=== PATIENT | female | born 1995 | race African-American/Black ===

== ENCOUNTER 2019-02-28 17:57 | Emergency (ER) | payer OTHER ==
[~2019-02-28] VITALS: Ht 165.1 cm; Wt 65.8 kg
--- NOTE | 2019-02-28 18:40 | PHYS DOC ---
Adult General Chief Complaint Chief Complaint: VAGINAL BLEEDING HPI HPI Patient is a 23 year old who presents to the ER for vaginal bleeding. Bleeding started this morning. Her last menstrual period is December 23 and that she's had a positive home test. Also had positive at [facility] on January 18. Has not had OB care. States that this is her fifth and she has 3 live children, and one miscarriage. She is carried all 3 children to full- term. Rates her pain as 5 out of 10 and crampy. Has not tried any interventions at home. (ISABELLA MARTINEZ APRN) Review of Systems Review of Systems Constitutional: Denies fever or chills [] Eyes: Denies change in visual acuity, redness, or eye pain [] HENT: Denies nasal congestion or sore throat [] Respiratory: Denies cough or shortness of breath [] Cardiovascular: No additional information not addressed in HPI [] GI: Reports abdominal diffusely Denies nausea, vomiting, bloody stools or diarrhea [] : Denies dysuria or hematuria [] Musculoskeletal: Denies back pain or joint pain [] Integument: Denies rash or skin lesions [] Neurologic: Denies headache, focal weakness or sensory changes [] Endocrine: Denies polyuria or polydipsia [] Complete systems were reviewed and found to be within normal limits, except as documented in this note. (ISABELLA MARTINEZ APRN) Physical Exam Physical Exam Constitutional: Well developed, well nourished, no acute distress, non-toxic appearance. [] HENT: Normocephalic, atraumatic, bilateral external ears normal, oropharynx mo ist, no oral exudates, nose normal. [] Eyes: PERRLA, EOMI, conjunctiva normal, no discharge. [] Neck: Normal range of motion, no tenderness, supple, no stridor. [] Cardiovascular:Heart rate regular rhythm, no murmur [] Lungs & Thorax: Bilateral breath sounds clear to auscultation [] Abdomen: Bowel sounds normal, soft, tenderness, states it has been cramping, no masses, no pulsatile masses. [] Skin: Warm, dry, no erythema, no rash. [] Back: No tenderness, no CVA tenderness. [] Extremities: No tenderness, no cyanosis, no clubbing, ROM intact, no edema. [] Neurologic: Alert and oriented X 3, normal motor function, normal sensory function, no focal deficits noted. [] Psychologic: Affect normal, judgement normal, mood normal. [] Pelvic Exam: External exam is normal and without rash, No CMT, OS is closed, blood noted, uterus NTTP, No adnexal masses but some tenderness noted: Pelvic performed by Liz Bai, Medical Student. (ISABELLA MARTINEZ APRN) Physical Exam Constitutional: Well developed, well nourished, no acute distress, non-toxic appearance HENT: Normocephalic, atraumatic, oropharynx moist Cardiovascular: Heart rate normal, regular rhythm Lungs & Thorax: Bilateral breath sounds clear to auscultation, no wheezing Abdomen: Soft, no tenderness Pelvic exam: as above Neurologic: Alert and oriented X 3, no focal deficits noted Psychologic: Affect normal, judgement normal, mood normal (ISABELLA KAYE DO) Current Patient Data Vital Signs Vital Signs Date Time Temp Pulse Resp B/P (MAP) Pulse Ox O2 Delivery O2 Flow Rate FiO2 02/28/19 20:30 78 18 114/71 (85) 99 Room Air 02/28/19 18:34 98.4 98.4 (KAYEISABELLA BRANCH R DO) Lab Values Laboratory Tests Test 02/28/19 18:28 02/28/19 18:30 02/28/19 20:07 Urine Collection Type Unknown Urine Color Yellow Urine Clarity Clear Urine pH 5.0 Urine Specific Bedias 1.020 Urine Protein Negative mg/dL (NEG-TRACE) Urine Glucose (UA) Negative mg/dL (NEG) Urine Ketones (Stick) Negative mg/dL (NEG) Urine Blood Large (NEG) Urine Nitrite Negative (NEG) Urine Bilirubin Negative (NEG) Urine Urobilinogen Dipstick 0.2 mg/dL (0.2 mg/dL) Urine Leukocyte Esterase Negative (NEG) Urine RBC 3-5 /HPF (0-2) Urine WBC Rare /HPF (0-4) Urine Squamous Epithelial Cells Few /LPF Urine Amorphous Sediment Present /HPF Urine Bacteria 0 /HPF (0-FEW) Urine Mucus Slight /LPF POC Urine HCG, Qualitative Hcg negative (Negative) White Blood Count 5.5 x10^3/uL (4.0-11.0) Red Blood Count 4.73 x10^6/uL (3.50-5.40) Hemoglobin 12.6 g/dL (12.0-15.5) Hematocrit 37.2 % (36.0-47.0) Mean Corpuscular Volume 79 fL (79-100) Mean Corpuscular Hemoglobin 27 pg (25-35) Mean Corpuscular Hemoglobin Concent 34 g/dL (31-37) Red Cell Distribution Width 13.7 % (11.5-14.5) Platelet Count 239 x10^3/uL (140-400) Neutrophils (%) (Auto) 53 % (31-73) Lymphocytes (%) (Auto) 37 % (24-48) Monocytes (%) (Auto) 8 % (0-9) Eosinophils (%) (Auto) 2 % (0-3) Basophils (%) (Auto) 1 % (0-3) Neutrophils # (Auto) 2.9 x10^3uL (1.8-7.7) Lymphocytes # (Auto) 2.0 x10^3/uL (1.0-4.8) Monocytes # (Auto) 0.4 x10^3/uL (0.0-1.1) Eosinophils # (Auto) 0.1 x10^3/uL (0.0-0.7) Basophils # (Auto) 0.0 x10^3/uL (0.0-0.2) Maternal Serum HCG Beta Subunit < 1 mIU/mL (0-5) Sodium Level 140 mmol/L (136-145) Potassium Level 3.6 mmol/L (3.5-5.1) Chloride Level 104 mmol/L (98-107) Carbon Dioxide Level 26 mmol/L (21-32) Anion Gap 10 (6-14) Blood Urea Nitrogen 12 mg/dL (7-20) Creatinine 0.8 mg/dL (0.6-1.0) Estimated GFR (Cockcroft-Gault) 107.6 BUN/Creatinine Ratio 15 (6-20) Glucose Level 83 mg/dL (70-99) Calcium Level 9.1 mg/dL (8.5-10.1) Total Bilirubin 0.6 mg/dL (0.2-1.0) Aspartate Amino Transferase (AST) 17 U/L (15-37) Alanine Aminotransferase (ALT) 26 U/L (14-59) Alkaline Phosphatase 71 U/L (46-116) Total Protein 8.2 g/dL (6.4-8.2) Albumin 4.0 g/dL (3.4-5.0) Albumin/Globulin Ratio 1.0 (1.0-1.7) Laboratory Tests 02/28/19 20:07 Laboratory Tests 02/28/19 20:07 (ISABELLA KAYE DO) Lab Values Laboratory Tests Test 02/28/19 18:28 02/28/19 18:30 Urine Collection Type Unknown Urine Color Yellow Urine Clarity Clear Urine pH 5.0 Urine Specific Bedias 1.020 Urine Protein Negative mg/dL (NEG-TRACE) Urine Glucose (UA) Negative mg/dL (NEG) Urine Ketones (Stick) Negative mg/dL (NEG) Urine Blood Large (NEG) Urine Nitrite Negative (NEG) Urine Bilirubin Negative (NEG) Urine Urobilinogen Dipstick 0.2 mg/dL (0.2 mg/dL) Urine Leukocyte Esterase Negative (NEG) Urine RBC 3-5 /HPF (0-2) Urine WBC Rare /HPF (0-4) Urine Squamous Epithelial Cells Few /LPF Urine Amorphous Sediment Present /HPF Urine Bacteria 0 /HPF (0-FEW) Urine Mucus Slight /LPF POC Urine HCG, Qualitative Hcg negative (Negative) (ISABELLA MARTINEZ APRN) EKG EKG [] (ISABELLA MARTINEZ APRN) Radiology/Procedures Radiology/Procedures Ultrasound states that there is left ovarian cyst with no or c ontent.[] (ISABELLA MARTINEZ APRN) Radiology/Procedures PROCEDURE: OB TRANSVAG OB ultrasound transvaginal HISTORY: Vaginal bleeding Transvaginal sonographic examination of the was performed and multiple static images were obtained. The endometrium appears homogeneous and measures 6 mm in thickness. There is no gestational sac seen. The right ovary is seen with normal blood flow measures 2.7 x 2.3 x 2.0 cm. The left ovary is seen with normal blood flow measures 2.5 x 4.0 x 2.4 cm and contains a partially collapsed corpus luteal cyst that measures 2.7 x 1.1 x 1.7 cm. There is minimal free fluid. IMPRESSION: No seen. Blighted ovum, miscarriage or early is still possible. Recommend correlation with serial quantitative beta hCG. If the continues a short-term follow-up ultrasound should be performed at 6 weeks to confirm an intrauterine . Electronically signed by: Darion Wilder III, MD (02/28/2019 7:53 PM) [facility] [id number] (ISABELLA KAYE DO) Course & Med Decision Making Course & Med Decision Making Pertinent Labs and Imaging studies reviewed. (See chart for details) Will get ultrasound, labs, urine, and evaluate. Turned patient over to Dr. Kaye at 20:00. (ISABELLA MARTINEZ APRN) Course & Med Decision Making Sign out received from Isabella DURON for patient with vaginal bleeding with report of . US without signs of gestation. Awaiting laboratory data. Patient seen and evaluated by myself and medical student. Medical student performed pelvic exam under supervision. Labs reviewed with CG < 1. Patient reports had bleeding 1 month ago. Concern for complete miscarriage last month with return of menstrual cycle now. Patient stable for discharge with outpatient follow-up with PCP. Discussed findings and plan with patient and family, who acknowledge understanding and agreement. (ISABELLA KAYE DO) Dragon Disclaimer Dragon Disclaimer This electronic medical record was generated, in whole or in part, using a voice recognition dictation system. (ISABELLA MARTINEZ APRN) Departure Departure Impression: Primary Impression: Vaginal bleeding Disposition: HOME, SELF-CARE Condition: STABLE Patient Instructions: Abnormal Uterine Bleeding, Pelvic Pain, Female, [id number] Additional Instructions: Take over the counter Tylenol and Ibuprofen for pain or discomfort. Attending Signature Attending Signature I have personally interviewed and examined the patient. All charts, labs, and imaging studies were reviewed. I agree with the PA/CUFF STITCHER's findings, exam, and plan. (ISABELLA KAYE DO) ISABELLA MARTINEZ APRN Feb 28, 2019 18:40 ISABELLA KAYE DO Feb 28, 2019 20:50
[2019-02-28 18:54] LABS: BILIRUBIN,URINE NEGATIVE (NEG); CLARITY,URINE CLEAR; COLOR,URINE YELLOW; NITRITE,URINE NEGATIVE (NEG); PROTEIN,URINE NEGATIVE (NEG-TRACE); UROBILINOGEN,URINE 0.2 mg/dL (0.2 mg/dL)
[2019-02-28 18:58] LABS: SQUAMOUS EPITHELIAL CELL,UR FEW /LPF
[2019-02-28 18:59] LABS: WBC,URINE RARE /HPF (0-4)
[2019-02-28 19:00] LABS: AMORPHOUS SEDIMENT,UR PRESENT /HPF; BACTERIA,URINE 0 /HPF (0-FEW)
--- NOTE | 2019-02-28 19:56 | RAD ---
OB ultrasound transvaginal HISTORY: Vaginal bleeding Transvaginal sonographic examination of the was performed and multiple static images were obtained. The endometrium appears homogeneous and measures 6 mm in thickness. There is no gestational sac seen. The right ovary is seen with normal blood flow measures 2.7 x 2.3 x 2.0 cm. The left ovary is seen with normal blood flow measures 2.5 x 4.0 x 2.4 cm and contains a partially collapsed corpus luteal cyst that measures 2.7 x 1.1 x 1.7 cm. There is minimal free fluid. IMPRESSION: No seen. Blighted ovum, miscarriage or early is still possible. Recommend correlation with serial quantitative beta hCG. If the continues a short-term follow-up ultrasound should be performed at 6 weeks to confirm an intrauterine . Electronically signed by: Darion Wilder III, MD (02/28/2019 7:53 PM) [id number]
[2019-02-28 20:21] LABS: BASO % 1 % (0-3); EOS # 0.1 x10^3/uL (0.0-0.7); EOS % 2 % (0-3); HEMATOCRIT 37.2 % (36.0-47.0); HEMOGLOBIN 12.6 g/dL (12.0-15.5); LYMPH % 37 % (24-48); MEAN CORPUSCULAR HEMOGLOBIN 27 pg (25-35); MEAN CORPUSCULAR HGB CONC 34 g/dL (31-37); MEAN CORPUSCULAR VOLUME 79 fL (79-100); MONO # 0.4 x10^3/uL (0.0-1.1); MONO % 8 % (0-9); NEUT # 2.9 x10^3uL (1.8-7.7); NEUT % 53 % (31-73); PLATELET COUNT 239 x10^3/uL (140-400); RED BLOOD COUNT 4.73 x10^6/uL (3.50-5.40); RED CELL DISTRIBUTION WIDTH 13.7 % (11.5-14.5); WHITE BLOOD COUNT 5.5 x10^3/uL (4.0-11.0)
[2019-02-28 20:30] VITALS: BP 114/71
[2019-02-28 20:37] LABS: CALCIUM 9.1 mg/dL (8.5-10.1); CREATININE 0.8 mg/dL (0.6-1.0); GFR 107.6; POTASSIUM 3.6 mmol/L (3.5-5.1)
[2019-02-28 20:42] LABS: TOTAL BILIRUBIN 0.6 mg/dL (0.2-1.0); TOTAL PROTEIN 8.2 g/dL (6.4-8.2)
== END 2019-02-28 21:08 | disposition home or self-care (01) ==
LOC: ER 17:57
DX: N93.9 Abnormal uterine and vaginal bleeding, unspecified (principal)
CPT/HCPCS: 36415; 76817; 80053; 81001; 81025; 84702; 85025; 86900; 86901; 99285-25